=== PATIENT | female | born 1960 | race African-American/Black ===

== ENCOUNTER 2018-10-10 10:11 | Observation (INO) | payer BC ==
[2018-10-10] MEDS ORDERED: Meclizine HCl 25 MG TAB ONE (11:06)
--- NOTE | 2018-10-10 11:28 | CT ---
CT head noncontrast HISTORY: Dizziness. Altered mental status. COMPARISON: 07/30/2011. FINDINGS: There is no evidence of acute intracranial hemorrhage or infarct. The ventricles appear nor mal in size, shape and position. There is no mass effect or shift of midline structures. Visualized paranasal sinuses remain well aerated IMPRESSION: No acute intracranial abnormalities are demonstrated.
[2018-10-10] MEDS ORDERED: Guaifenesin DM 100-10/5 ML UDCUP PO PRN (11:54)
[2018-10-10] MEDS ORDERED: Dextrose 50% Abboject 50 ML SYRINGE SLOW IVP PRN (11:54)
[2018-10-10] MEDS ORDERED: Bisacodyl 10 MG SUPP PR PRN (11:54)
[2018-10-10] MEDS ORDERED: Dextrose 5% in Water 1,000 ML IV PRN (11:54)
[2018-10-10] MEDS ORDERED: Acetaminophen 325 MG TAB PO PRN (11:54)
[2018-10-10] MEDS ORDERED: HumaLOG 300 UNITS/3 ML VIAL SC PRN (11:54)
[2018-10-10] MEDS ORDERED: Senokot S 8.6-50 MG TAB PO PRN (11:54)
--- NOTE | 2018-10-10 12:28 | HP ---
REASON FOR ADMISSION: Near syncope, dizziness, possible TIA. HISTORY OF PRESENTING ILLNESS: The patient gives history of waking up around 5: 30 in the morning and did not feel good. She felt dizzy. Especially this was worse on standing up from lying down position. She vomited once and thought it might make her feel better, but this dizzy feeling continued. She was stumbling all over the house. She managed to go to work at [facility]. The patient still was feeling dizzy and got checked into [facility]. She was found to have had systolic blood pressures of 190. 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 No complaints of chest pain or palpitation. The patient says she worked in the yard yesterday and thinks that she might have hydrated well, but she is not so sure. No complaints of urinary frequency, urgency, fever, chest pain, palpitation, PND, or orthopnea. No complaints of cough or expectoration. PAST MEDICAL AND SURGICAL HISTORY: 1. History of hypertension. 2. Diabetes mellitus. 3. Noncompliant with medications or diet. 4. History of PE in 2007 and is on Coumadin for the same. 5. Mitral valve prolapse. 6. Bilateral rotator cuff repairs. 7. Cardiac cath done in 2008 at [facility] with no intervention per the patient. 8. Right ovarian cyst removed. 9. Right knee surgery, likely arthroscopic. 10. Tonsillectomy. 11. Hysterectomy. 12. Her last stress test was in 2016 here, which showed no evidence of reversible ischemia. CURRENT MEDICATIONS: 1. Lopressor 25 mg daily. 2. Coumadin 7.5 mg for 3 days and 5 mg on the rest of the 4 days. 3. Losartan with hydrochlorothiazide one tablet daily. ALLERGIES: ALLERGIC TO FLEXERIL; LISINOPRIL, WHICH CAUSES COUGH, BUT IS OKAY TAKING LOSARTAN; AND VICODIN. PERSONAL HISTORY: Does not abuse alcohol or drugs. No history of smoking. FAMILY HISTORY: Both parents are living. Mother is a survivor of breast cancer. Father has had history of stroke, hypertension, and dyslipidemia. CODE STATUS: Full. Power of deputy county attorney is her daughter, Ms. Jadon Cassidy. REVIEW OF SYSTEMS: CONSTITUTIONAL: Negative for weight loss or gain, ability to conduct usual activities. SKIN: Negative for rash, itching. EYES: Negative for double vision, pain. ENT/MOUTH: Negative for nose bleeding, neck stiffness, pain, tenderness. CARDIOVASCULAR: Negative for palpitations, dyspnea on exertion, orthopnea. RESPIRATORY: Negative for shortness of breath, wheezing, cough, hemoptysis, fever or night sweats. GASTROINTESTINAL: Negative for poor appetite, abdominal pain, heartburn, nausea , vomiting, constipation, or diarrhea. GENITOURINARY: Negative for urgency, frequency, dysuria, nocturia. MUSCULOSKELETAL: Negative for pain, swelling. NEUROLOGIC/PSYCHIATRIC: Negative for anxiety, depression. ALLERGY/IMMUNOLOGIC: Negative for skin rash, bleeding tendency. PHYSICAL EXAMINATION: GENERAL: The patient is a 57-year-old female, who is currently not in any acute distress. VITAL SIGNS: Blood pressure 190/90 at [facility], here it is 175/78; pulse 62 per minute; respiratory rate 20 per minute; temperature 98 degrees Fahrenheit; saturating 100% on room air. NECK: Supple. No elevated JVP. HEENT: Eyes; extraocular muscles intact. Pupils reacting to light. Oral cavity, mucous membranes are moist. No exudates or congestion. CARDIOVASCULAR SYSTEM: S1 and S2 heard. Regular rhythm. RESPIRATORY SYSTEM: Air entry 1+ bilateral. No rales or rhonchi. ABDOMEN: Soft. Bowel sounds heard. No tenderness, rigidity, or guarding. EXTREMITIES: No peripheral edema or calf tenderness. VASCULAR SYSTEM: Peripheral pulses 1+ bilateral. There is peripheral edema 1+ bilateral. No ischemic ulcerations or gangrene. CENTRAL NERVOUS SYSTEM: No gross focal deficits noted. The patient is alert, awake, and oriented well. PSYCHIATRIC SYSTEM: The patient's mood is euthymic. No hallucinations or delusions. LABORATORY DATA: White count of 4.6, H and H 12 and 43, platelet count is 255, MCV is 78 with 42% neutrophils, and 47% lymphocytes. PT/INR is 15 and 1.2 and PTT 29. BUN 16, creatinine 0.7, and serum glucose 137. Liver enzymes within normal limits. First set of cardiac enzymes are negative. CT brain done shows no acute intracranial abnormality. No hemorrhage or infarct seen. EKG done shows sinus bradycardia at 54 beats per minute, the signs of LVH seen, her corrected QT interval is 426 milliseconds. CLINICAL IMPRESSION AND PLAN: The patient will be under observation on stroke unit for dizziness likely orthostasis, uncontrolled hypertension, rule out TIA. We will follow TIA evidence based protocol. Her CT brain was negative. We will obtain MRI without contrast. Orthostatic blood pressures. Lipid profile in the morning. She will be on aspirin, home dose of Coumadin at 7.5 and 5 mg as before. We will also continue Lopressor 25 twice daily and losartan with hydrochlorothiazide at home dose once daily. We will obtain HbA1c and place her on a moderate sliding scale with Humalog for now. Lipitor 40 mg will be added. We will continue to closely monitor her on the stroke unit. She has had a recent stress test in 2015, which was normal. She has also had a cardiac cath done in 2008 at [facility], with no intervention, likely normal coronaries per the patient. Job ID: [id number] MTDD
[2018-10-10 12:30] LABS: Bilirubin Negative (Negative); Blood, Urine Negative (Negative); Clarity CLEAR (Clear); Glucose, Urine (Dipstick) Negative (Negative); Leukocyte Negative (Negative); Nitrite Negative (Negative); Protein, Urine (Dipstick) Negative (Neg-Trace); Specific Gravity, Urine 1.015 (1.002-1.036); Urobilinogen 0.2 mg/dL (0.2-1.0)
[2018-10-10 12:33] LABS: Pregnancy Test - Urine (BHCG) Negative (Negative); Pregu Control Background? CLEAR/WHITE (CLR/WHITE); Pregu Control Bar Appear? YES (CONTROL BAR); Specific Gravity 1.015 (1.002-1.036)
[2018-10-10] MEDS: Sodium Chloride 0.9% 1,000 ML IV SCH (14:13)
[2018-10-10 14:45] VITALS: BMI 35.5
--- NOTE | 2018-10-10 16:19 | MRI ---
MRI BRAIN NONCONTRAST: 10/10/18 HISTORY: 57-year-old female with nausea, vomiting, dizziness, and TIA. FINDINGS: The ventricles are normal in size and configuration. There is no major intraaxial signal abnormality , restricted diffusion, midline shift or any other mass effect, recent intraaxial hemorrhage, or extr aaxial fluid collection. IMPRESSION: Normal. jn[] POS: [facility]
[2018-10-10] MEDS: Metoprolol Tartrate 25 MG TAB PO SCH (20:32)
[2018-10-10] MEDS: Famotidine 20 MG TAB PO SCH (20:32)
[2018-10-10] MEDS ORDERED: Atorvastatin Calcium 40 MG TAB PO SCH (21:00)
[2018-10-11] MEDS: Sodium Chloride 0.9% 1,000 ML IV SCH (02:01)
[2018-10-11 06:24] LABS: Band 2 % (5-11); Eosinophils 3 % (0-10); Hemoglobin 11.7 g/dL (12.0-16.0); Lymphocytes 52 % (21-51); MDiff Complete? YES; Mean Corpuscular HGB CONC 31.5 g/dL (32.0-36.0); Mean Corpuscular Hemoglobin 24.7 pg (27.0-31.0); Mean Corpuscular Volume 78.5 fL (78.0-98.0); Mean Platelet Volume 8.9 fL (7.4-10.4); Monocytes 1 % (0-10); Neutrophil 37 % (42-75); Platelet Count 211 thou/uL (130-400); Platelet Morphology Comment Appears Adequate; RBC Morphology Normal; Reactive Lymphocytes 4 % (0-10); Red Blood Cell (RBC) Count 4.74 mill/uL (4.20-5.40); White Blood Cell (WBC) Count 5.1 thou/uL (4.8-10.8)
[2018-10-11 06:31] LABS: Anion Gap 11 mmol/L (10-20); BUN (Urea Nitrogen) 13 mg/dL (9.8-20.1); Calc. Creatinine Clearance 135 mL/min (70-130); Calcium 8.9 mg/dL (7.8-10.44); Carbon Dioxide 23 mmol/L (22-29); Cardiac Risk 5.6 (Less than 4.5); Chloride 110 mmol/L (98-107); Cholesterol 185 mg/dl (< 200 Desired); Estimated GFR-MDRD Greater than 90; Glucose 103 mg/dL (70-105); HDL Cholesterol 33 mg/dL (>60 Neg Risk); LDL Cholesterol, Calculated 133 mg/dL; Potassium 3.8 mmol/L (3.5-5.1); Sodium 140 mmol/L (136-145); Triglycerides 96 mg/dL (Less than 150)
[2018-10-11] MEDS ORDERED: Aspirin 81 mg Enteric Coated Tablet PO SCH (09:00)
[2018-10-11] MEDS ORDERED: NIFEdipine XL 30 MG TAB PO SCH (09:00)
[2018-10-11] MEDS: Famotidine 20 MG TAB PO SCH (09:03)
[2018-10-11] MEDS: Metoprolol Tartrate 25 MG TAB PO SCH (09:03)
[2018-10-11 12:24] VITALS: BP 180/77; TEMP 98.2
--- NOTE | 2018-10-12 11:15 | DIS ---
DATE OF ADMISSION: 10/10/2018 DATE OF DISCHARGE: 10/11/2018 DISCHARGE DISPOSITION: Home. PRIMARY DISCHARGE DIAGNOSIS: Near syncope, dizziness, and to rule out TIA. SECONDARY DISCHARGE DIAGNOSES: Hypertension, uncontrolled; diabetes mellitus, type 2 for diet control; history of pulmonary embolism, on Coumadin; mitral valve prolapse. PROCEDURES DONE DURING HOSPITALIZATION: The patient has had CT without contrast done, which showed no evidence of acute intracranial abnormality. MRI brain without contrast showed no acute infarct. H and H 11 and 37, platelet count 211, MCV 78. Total cholesterol 185, triglycerides 96, LDL 133, HDL 33. Urine test was negative. DISCHARGE MEDICATION: 1. Metoprolol 25 mg twice daily. 2. Procardia XL 30 mg daily. 3. Losartan with hydrochlorothiazide 50/12.5 mg daily. 4. Atorvastatin 40 mg p.o. at bedtime. 5. Coumadin 5 mg daily. 6. Protonix 40 mg daily. ALLERGIES: TO HYDROCODONE, LISINOPRIL, AND FLEXERIL. DISCHARGE PLAN: The patient to follow up with primary care physician in 1 week. BRIEF COURSE DURING HOSPITALIZATION: The patient initially was transferred from [facility] for complaints of dizziness and to rule out TIA. She also had uncontrolled hypertension on arrival. She was placed under observation on stroke unit. A complete stroke workup was done which was negative for any acute CVA. Medications were optimized for uncontrolled hypertension. The patient's diabetes is diet controlled. She has remained hemodynamically stable during her stay here. Her dizziness is completely resolved. She has been advised to check blood pressure and pulse twice daily and record for a period of 10 days to follow up with primary care physician. Please note, I have seen and examined the patient on the day of discharge. Her symptoms were likely due to uncontrolled hypertension and orthostasis. Job ID: [id number] [facility]
== END 2018-10-11 13:40 | disposition home or self-care (01) ==
LOC: ERS 10:11 → 2SE 13:50
PROVIDERS: ADMIT Internal Medicine; ATTEND Internal Medicine
DX: R42 Dizziness and giddiness (principal); R55 Syncope and collapse; I10 Essential (primary) hypertension; E11.9 Type 2 diabetes mellitus without complications; I34.1 Nonrheumatic mitral (valve) prolapse; Z86.711 Personal history of pulmonary embolism; Z91.11 Patient's noncompliance with dietary regimen; Z91.14 Patient's other noncompliance with medication regimen; Z79.01 Long term (current) use of anticoagulants; Z79.899 Other long term (current) drug therapy; Z88.5 Allergy status to narcotic agent; Z88.8 Allergy status to other drugs, medicaments and biological substances; Z98.890 Other specified postprocedural states
CPT/HCPCS: 36415; 36416; 70450; 70551; 80048; 80061; 81003; 81025; 85025; 96360; 96361; G0378; J8499

== ENCOUNTER 2019-10-05 23:09 | Inpatient (IN) | payer BC, OTHER ==
--- NOTE | 2019-10-06 00:06 | RAD ---
XR Chest 1 View Portable HISTORY: Shortness of breath COMPARISON: 08/07/2018 FINDINGS: The heart size is normal. The lungs are well expanded without focal areas of consolidation, pneumothorax or pleural effusions. IMPRESSION: No radiographic evidence of acute cardiopulmonary process.
[2019-10-06] MEDS ORDERED: Ibuprofen 200 MG TAB ONE (00:07)
[2019-10-06] MEDS ORDERED: Ondansetron PF 4 MG/2 ML Vial ONE (00:07)
[2019-10-06] MEDS ORDERED: Azithromycin 500 MG VIAL ONE (00:12)
[2019-10-06] MEDS ORDERED: cefTRIAXone\\ROCEPHIN 2 GM VIAL ONE (00:12)
[2019-10-06 00:50] LABS: Glucose 124 mg/dL (70-105)
[2019-10-06 00:59] LABS: ALT (SGPT) 18 U/L (8-55); AST (SGOT) 30 U/L (5-34); Albumin 3.6 g/dL (3.5-5.0); Alkaline Phosphatase 42 U/L (40-110); Anion Gap 15 mmol/L (10-20); BUN (Urea Nitrogen) 9 mg/dL (9.8-20.1); Bilirubin, Total 0.7 mg/dL (0.2-1.2); Calc. Creatinine Clearance 0 mL/min (70-130); Calcium 8.3 mg/dL (7.8-10.44); Carbon Dioxide 21 mmol/L (22-29); Chloride 106 mmol/L (98-107); Estimated GFR-MDRD Greater than 90; Globulin 3.9 g/dL (2.4-3.5); Potassium 4.4 mmol/L (3.5-5.1); Protein, Total 7.5 g/dL (6.0-8.3); Sodium 138 mmol/L (136-145)
[2019-10-06 01:08] LABS: INR-International Normal Ratio 2.7; PTT 57.3 sec (22.9-36.1); Prothrombin Time 28.1 sec (12.0-14.7)
[2019-10-06 01:19] LABS: #Basophils 0.1 thou/uL (0.0-0.2); #Lymphocytes 1.9 thou/uL (1.20-3.40); #Monocytes 0.3 thou/uL (0.11-0.59); #Neutrophils 4.1 thou/uL (1.40-6.50); %Eosinophils 0.3 % (0.0-10.0); %Lymphocytes 30.1 % (21.0-51.0); %Monocytes 4.8 % (0.0-10.0); %Neutrophils 63.8 % (42.0-75.0); Anisocytosis SLIGHT = 6-15 cells (100X) (0-5/hpf); Elliptocytes SLIGHT = 2-5 cells (100X) (0-1/hpf); Hemoglobin 11.3 g/dL (12.0-16.0); MDiff Complete? YES; Mean Corpuscular HGB CONC 32.9 g/dL (32.0-36.0); Mean Corpuscular Hemoglobin 23.8 pg (27.0-31.0); Mean Corpuscular Volume 72.6 fL (78.0-98.0); Mean Platelet Volume 12.1 fL (7.4-10.4); Platelet Count 154 thou/uL (130-400); RBC Distribution Width 14.6 % (11.5-14.5); Red Blood Cell (RBC) Count 4.72 mill/uL (4.20-5.40); White Blood Cell (WBC) Count 6.4 thou/uL (4.8-10.8)
[2019-10-06] MEDS ORDERED: Nitroglycerin 0.4 MG TAB (25 Tab Bottle) PO PRN (01:52)
[2019-10-06] MEDS ORDERED: Dextrose 5% in Water 1,000 ML IV PRN (01:58)
[2019-10-06] MEDS ORDERED: Dextrose 50% Abboject 50 ML SYRINGE SLOW IVP PRN (01:58)
[2019-10-06] MEDS ORDERED: HumaLOG 300 UNITS/3 ML VIAL SC PRN (01:58)
--- NOTE | 2019-10-06 02:08 | PDOC.EVN ---
Event Note - Event Note Event Note: [id number] HP dictated
[2019-10-06] MEDS ORDERED: Sodium Chloride 0.9% 1,000 ML IV SCH (02:15)
[2019-10-06 03:48] VITALS: BMI 32.5
--- NOTE | 2019-10-06 05:29 | HP ---
CHIEF COMPLAINT: Shortness of breath and chest pain. HISTORY OF PRESENT ILLNESS: Ms. Cassidy is a 58-year-old female with past medical history of hypertension; diabetes mellitus, type 2; pulmonary embolism, on Coumadin, presented to the emergency room with worsening shortness of breath since yesterday. Also she has been having chest tightness and chest pain. Chest pain is described in the center of the chest. The patient has been feeling sick for 1 week. She was tested positive for COVID. Workup in the emergency room, the patient was in respiratory distress. Febrile with a temperature of 103.2. Troponin is negative. Septic workup done in the ED. The patient was given IV antibiotics in the emergency room and albuterol inhaler. The patient is being admitted to hospital for further management. PAST MEDICAL HISTORY: 1. Pulmonary embolism. 2. Diabetes mellitus. 3. Hypertension. 4. Recently diagnosed with COVID. 5. Mitral valve prolapse. PAST SURGICAL HISTORY: 1. Left rotator cuff. 2. Right ovarian cyst. 3. Right knee. 4. Tonsillectomy. 5. Hysterectomy. 6. Right rotator cuff. 7. Knee surgery. SOCIAL HISTORY: No smoking history. Denies drug use. Drinks socially. FAMILY HISTORY: Reviewed and noncontributory. HOME MEDICATIONS: Please see home medication reconciliation form for updated medications. ALLERGIES: CYCLOBENZAPRINE, FLEXERIL, HYDROCODONE, BARBITURATES, LISINOPRIL, VICODIN. REVIEW OF SYSTEMS: Review of 14 systems negative except what is mentioned in the history of present illness. PHYSICAL EXAMINATION: GENERAL: The patient is awake, in moderate respiratory distress. VITAL SIGNS: Blood pressure 120/80, pulse is 86, respiratory rate is 22, temperature is 103.2, oxygen saturation 95% on room air. HEAD AND NECK: Normocephalic, atraumatic. NECK: Supple. No JVD. CHEST: Diffuse bilateral expiratory wheeze. HEART: S1, S2. Regular. ABDOMEN: Soft, nontender. Bowel sounds present. NEUROLOGIC: Awake, alert, moving extremities. PSYCHIATRIC: Unable to assess. EXTREMITIES: No clubbing or cyanosis. GENITOURINARY: No suprapubic tenderness. No flank tenderness. ASSESSMENT AND PLAN: 1. Acute dyspnea. 2. Chest pain. 3. COVID-2019 respiratory tract infection. 4. Hypertension. 5. Diabetes mellitus, type 2. 6. History of pulmonary embolism, on Coumadin. PLAN: 1. Admit. 2. Serial troponins. 3. Aspirin. 4. Empiric antibiotics. Cannot rule out superimposed bacterial infection. 5. Bronchodilators as needed. 6. Reconcile home medications. 7. DVT prophylaxis as appropriate. 8. Expected length of stay, 2 midnights or more. Job ID: [id number]
[2019-10-06 05:58] LABS: Troponin I 0.015 ng/mL (< 0.028)
[2019-10-06] MEDS: Aspirin 325 mg Enteric Coated Tablet PO SCH (08:35)
[2019-10-06] MEDS ORDERED: Enoxaparin Sodium 80 MG/0.8 ML SYRINGE SC SCH (09:00)
[2019-10-06 11:05] LABS: Troponin I Less than 0.010 ng/mL (< 0.028)
[2019-10-06] MEDS ORDERED: Albuterol Sulfate 2.5 mg/3 ml Neb NEB PRN (11:22)
[2019-10-06] MEDS: Acetaminophen 325 MG TAB PO PRN ×2 (12:12→19:56)
[2019-10-06] MEDS ORDERED: Albuterol 200 PUFF (6.7GM INHALER) INH PRN (13:00)
--- NOTE | 2019-10-06 15:56 | PDOC.HOSPP ---
- Subjective Encounter Date: 10/06/19 Encounter Time: 15:56 Subjective: Ms. Cassidy was seen today in follow-up of COVID infection. She notes some tightness in her chest. She also says she feels" bad " when the fever hits. - Objective Vital Signs & Weight: Vital Signs (12 hours) Temp Pulse Resp BP Pulse Ox 10/06/19 11:00 102.5 F H 94 18 146/70 H 97 10/06/19 08:37 98.4 F 72 16 132/70 97 Weight Admit Weight 195 lb 4.8 oz Weight 195 lb 4.8 oz Result Diagrams: 10/06/19 00:49 10/06/19 00:10 Additional Labs: Accuchecks 10/06/19 10/06/19 11:01 04:08 POC Glucose 111 H 125 H Hospitalist ROS - Medication Medications: Active Medications Generic Name Dose Route Start Last Admin Trade Name Freq PRN Reason Stop Dose Admin Acetaminophen 650 mg 10/06/19 11:21 10/06/19 12:12 Tylenol PO 650 mg Q4H PRN Administration Headache/Fever or Pain Aspirin 325 mg 10/06/19 09:00 10/06/19 08:35 Ecotrin PO 325 mg DAILY NEW Administration - Exam Eye: PERRL, anicteric sclera Heart: RRR, no murmur, no gallops, no rubs, normal peripheral pulses Respiratory: CTAB (with some coarse breath sounds bilaterally, no rhonchi or wheezing) Gastrointestinal: soft, non-tender, non-distended, normal bowel sounds, no palpable masses, no hepatomegaly Extremities: no cyanosis, no edema Hosp A/P (1) COVID-19 Code(s): U07.1 - COVID-19 Status: Acute (2) HTN (hypertension) Code(s): I10 - ESSENTIAL (PRIMARY) HYPERTENSION Status: Chronic Qualifiers: Hypertension type: essential hypertension Qualified Code(s): I10 - Essential (primary) hypertension (3) Hx pulmonary embolism Code(s): Z86.711 - PERSONAL HISTORY OF PULMONARY EMBOLISM Status: Chronic - Plan * COVID infection- continue symptomatic management * Will check inflammatory markers, and trend * PE- continue coumadin * DM- continue SSI * Optimize nutritional status
--- NOTE | 2019-10-06 16:54 | CON ---
DATE OF CONSULTATION: 10/06/2019 REASON FOR CONSULTATION: COVID-19 infection. HISTORY OF PRESENT ILLNESS: A 58-year-old who has a history of mitral valve prolapse, type 2 diabetes, hypertension, and prior pulmonary embolism, who was exposed to family members with COVID pneumonia in [place] and in [place] and developed symptoms about 9 days before and came to the hospital because she was feeling breathless and started having fever. She denies any headaches. No abdominal pain or diarrhea. No genitourinary symptoms. No joint symptoms. MEDICAL HISTORY: 1. Mitral valve prolapse. 2. Type 2 diabetes. 3. Hypertension. 4. Pulmonary embolism. SOCIAL HISTORY: Never smoker. No other drug use. FAMILY HISTORY: Both parents with COVID in [place]. ALLERGIES: CYCLOBENZAPRINE, FLEXERIL, HYDROCODONE, AND LISINOPRIL. CURRENT MEDICATIONS: 1. Aspirin. 2. Azithromycin. 3. Ceftriaxone. 4. Insulin. 5. Nifedipine. 6. Coumadin. PHYSICAL EXAMINATION: VITAL SIGNS: T-max 102.5, blood pressure 140/70, pulse 94, respirations 18, and O2 saturation 97 on room air. GENERAL: Does not appear in distress, oriented, speaks in full sentences. SKIN: Normal. There is no lymphadenopathy. HEENT: Ocular movements conjugate. Oral cavity normal. NECK: Supple. LUNGS: Symmetric with clear breath sounds. HEART: S1 and S2. Regular rate. No S3 or S4. ABDOMEN: Soft, not distended or tender. No ascites. No bladder distention. EXTREMITIES: Moves all extremities equally. LABORATORY DATA: White cell count 6.4, hemoglobin 11, platelets 154, and normal differential, lymphocytes are 1.9. INR 2.7. D-dimer 0.49. CRP 5.88. Ferritin 388. Creatinine 0.79. Chest x-ray with no infiltrates. ASSESSMENT: 1. Type 2 diabetes. 2. Hypertension. 3. COVID-19 pneumonia. We will discontinue azithromycin and Rocephin. Continue conservative management. She is at almost 10 days of illness and she is not requiring oxygen supplementation, so I do not think she would be a candidate for a remdesivir at this point in time. Job ID: [id number]
[2019-10-06] MEDS: Atorvastatin Calcium 40 MG TAB PO SCH (19:41)
[2019-10-06] MEDS ORDERED: cefTRIAXone\\ROCEPHIN 1 GM in Sodium Chloride 0.9% 100 ML IVPB SCH (21:00)
[2019-10-06] MEDS ORDERED: Azithromycin 500 MG in Sodium Chloride 0.9% 250 ML 250 ML IVPB SCH (22:00)
[2019-10-07] MEDS: Acetaminophen 325 MG TAB PO PRN ×2 (00:53→09:31)
[2019-10-07 05:51] LABS: INR-International Normal Ratio 2.7; Prothrombin Time 28.1 sec (12.0-14.7)
[2019-10-07 05:52] LABS: D-Dimer Test 0.62 *mcg/mL (0.27-0.43)
[2019-10-07] MEDS: NIFEdipine XL 30 MG TAB PO SCH (09:25)
[2019-10-07] MEDS: Aspirin 325 mg Enteric Coated Tablet PO SCH (09:25)
[2019-10-07] MEDS: Folic Acid/Vit B Comp W-C PO SCH (09:25)
[2019-10-07] MEDS: Ascorbic Acid 500 mg Chewable Tablet PO SCH (09:25)
--- NOTE | 2019-10-07 10:46 | ULT ---
Exam: Right upper extremity venous ultrasound with Doppler HISTORY: Right lower extremity swelling. COMPARISON: 06/23/2015 TECHNIQUE: Grayscale, color flow, Doppler imaging and spectral wave form analysis of the right upper extremity venous system FINDINGS: There is patency and flow in the internal jugular vein, subclavian vein. There is compressi bility and flow in the axillary vein, brachial vein, radial vein, ulnar vein, cephalic vein, basilic vein IMPRESSION: No evidence of thrombus in the right upper extremity venous system
[2019-10-07] MEDS ORDERED: Warfarin Sodium 5 MG TAB PO SCH (17:00)
--- NOTE | 2019-10-07 17:27 | PRG ---
DATE OF SERVICE: 10/07/2019 SUBJECTIVE: Coughing less, although still every movement, she does, particularly on deep breathing, she was started coughing. No abdominal pain or diarrhea. OBJECTIVE: VITAL SIGNS: T-max 100.5 earlier today, BP 116/58, pulse 79, O2 saturations ranging from 94% to 99% on room air. GENERAL: Still looks apprehensive. LUNGS: With few crackles here and there. HEART: S1 and S2. Regular rate. ABDOMEN: Soft. Not distended. LABORATORY DATA: White cell count 6.4 and has not been repeated. CRP 10.13. Ferritin 380. D-dimer 0.62, a little bit higher than before. She is on warfarin. ASSESSMENT AND DISCUSSION: Type 2 diabetes, hypertension, COVID pneumonia, on conservative management. This is the 11th day of illness. Keep monitoring inflammatory markers, D-dimer. Job ID: [id number] MTDD
--- NOTE | 2019-10-07 17:28 | PDOC.HOSPP ---
- Subjective Encounter Date: 10/07/19 Encounter Time: 17:22 Subjective: Ms. Cassidy was seen today in follow-up of COVID infection. She says she is breathing better. Her appetite is improving. she continued to have some diarrhea. - Objective Vital Signs & Weight: Vital Signs (12 hours) Pulse Pulse Ox 10/07/19 09:25 79 10/07/19 08:00 94 L Weight Admit Weight 195 lb 4.8 oz Weight 194 lb 9.6 oz I&O: 10/06/19 10/07/19 10/08/19 06:59 06:59 06:59 Intake Total 686 320 Output Total 900 Balance -214 320 Result Diagrams: 10/06/19 00:49 10/06/19 00:10 Additional Labs: Accuchecks 10/07/19 10/07/19 10/07/19 16:09 12:29 04:59 POC Glucose 138 H 115 H 139 H 10/06/19 19:50 POC Glucose 135 H Hospitalist ROS - Medication Medications: Active Medications Generic Name Dose Route Start Last Admin Trade Name Freq PRN Reason Stop Dose Admin Acetaminophen 650 mg 10/06/19 11:21 10/07/19 09:31 Tylenol PO 650 mg Q4H PRN Administration Headache/Fever or Pain Ascorbic Acid 1,000 mg 10/07/19 09:00 10/07/19 09:25 Vitamin C PO 1,000 mg DAILY NEW Administration Aspirin 325 mg 10/06/19 09:00 10/07/19 09:25 Ecotrin PO 325 mg DAILY NEW Administration Atorvastatin Calcium 40 mg 10/06/19 21:00 10/06/19 19:41 Lipitor PO 40 mg HS NEW Administration HCTZ/Losartan Potassium 1 tab 10/07/19 09:00 10/07/19 09:25 Hyzaar 50/12.5 PO 1 tab DAILY NEW Administration Nifedipine 30 mg 10/07/19 09:00 10/07/19 09:25 Procardia Xl PO 30 mg DAILY NEW Administration Pantoprazole Sodium 40 mg 10/07/19 09:00 10/07/19 09:25 Protonix PO 40 mg DAILY NEW Administration Vitamin B Complex/Vit C/Folic Acid 1 tab 10/07/19 09:00 10/07/19 09:25 Nephro-Milton Tablet PO 1 tab DAILY NEW Administration Warfarin Sodium 5 mg 10/07/19 17:00 06/10/20 17:00 Coumadin PO 5 mg 1700 NEW Administration - Exam Eye: PERRL Heart: RRR, no murmur, no gallops, no rubs, normal peripheral pulses Respiratory: CTAB (with basilar rales) Gastrointestinal: soft, non-tender, non-distended, normal bowel sounds, no palpable masses, no hepatomegaly Extremities: no cyanosis, no edema Hosp A/P (1) COVID-19 Code(s): U07.1 - COVID-19 Status: Acute (2) HTN (hypertension) Code(s): I10 - ESSENTIAL (PRIMARY) HYPERTENSION Status: Chronic Qualifiers: Hypertension type: essential hypertension Qualified Code(s): I10 - Essential (primary) hypertension (3) Hx pulmonary embolism Code(s): Z86.711 - PERSONAL HISTORY OF PULMONARY EMBOLISM Status: Chronic - Plan * COVID infection- continue symptomatic management * Continue to trend inflammatory markers * PE- continue coumadin- and INR today was 2.7 * DM- continue SSI * Hopefully home tomorrow if her markers show some decline
[2019-10-07] MEDS: Atorvastatin Calcium 40 MG TAB PO SCH (20:19)
[2019-10-08 05:56] LABS: INR-International Normal Ratio 2.7; Prothrombin Time 28.3 sec (12.0-14.7)
[2019-10-08 05:57] LABS: D-Dimer Test 0.39 *mcg/mL (0.27-0.43)
[2019-10-08] MEDS: Folic Acid/Vit B Comp W-C PO SCH (07:44)
[2019-10-08] MEDS: Aspirin 325 mg Enteric Coated Tablet PO SCH (07:44)
[2019-10-08] MEDS: Ascorbic Acid 500 mg Chewable Tablet PO SCH (07:44)
[2019-10-08] MEDS: NIFEdipine XL 30 MG TAB PO SCH (07:44)
[2019-10-08 11:55] VITALS: BP 118/57; TEMP 96.6
--- NOTE | 2019-10-08 13:25 | PDOC.HOSPP ---
- Subjective Encounter Date: 10/08/19 Encounter Time: 13:24 Subjective: Ms. Cassidy was seen today in follow-up of COVID pneumonia. She is clinically improved. She seems a bit anxious about going home. No new complaints, except for some diarrhea. She has been breathing comfortably without oxygen supplementation. - Objective Vital Signs & Weight: Vital Signs (12 hours) Temp Pulse Resp BP BP Pulse Ox 10/08/19 11:45 96.6 F L 96 20 118/57 L 96 10/08/19 07:55 98.2 F 87 20 131/67 95 10/08/19 05:20 99 F 79 22 H 120/63 95 Weight Admit Weight 195 lb 4.8 oz Weight 194 lb 9.6 oz I&O: 10/07/19 10/08/19 10/09/19 06:59 06:59 06:59 Intake Total 686 780 Output Total 900 Balance -214 780 Result Diagrams: 10/06/19 00:49 10/06/19 00:10 Additional Labs: Accuchecks 10/08/19 10/08/19 10/07/19 11:45 05:21 20:44 POC Glucose 114 H 107 121 H 10/07/19 16:09 POC Glucose 138 H Hospitalist ROS - Medication Medications: Active Medications Generic Name Dose Route Start Last Admin Trade Name Celeste PRN Reason Stop Dose Admin Acetaminophen 650 mg 10/06/19 11:21 10/07/19 09:31 Tylenol PO 650 mg Q4H PRN Administration Headache/Fever or Pain Ascorbic Acid 1,000 mg 10/07/19 09:00 10/08/19 07:44 Vitamin C PO 1,000 mg DAILY NEW Administration Aspirin 325 mg 10/06/19 09:00 10/08/19 07:44 Ecotrin PO 325 mg DAILY NEW Administration Atorvastatin Calcium 40 mg 10/06/19 21:00 10/07/19 20:19 Lipitor PO 40 mg HS NEW Administration HCTZ/Losartan Potassium 1 tab 10/07/19 09:00 10/08/19 07:44 Hyzaar 50/12.5 PO 1 tab DAILY NEW Administration Nifedipine 30 mg 10/07/19 09:00 10/08/19 07:44 Procardia Xl PO 30 mg DAILY NEW Administration Pantoprazole Sodium 40 mg 10/07/19 09:00 10/08/19 07:44 Protonix PO 40 mg DAILY NEW Administration Vitamin B Complex/Vit C/Folic Acid 1 tab 10/07/19 09:00 10/08/19 07:44 Nephro-Milton Tablet PO 1 tab DAILY NEW Administration Warfarin Sodium 5 mg 10/07/19 17:00 10/07/19 17:00 Coumadin PO 5 mg 1700 NEW Administration - Exam Eye: PERRL, anicteric sclera Heart: RRR, no murmur, no gallops, no rubs, normal peripheral pulses Respiratory: CTAB, no wheezes, no rales, no ronchi, normal chest expansion, no tachypnea Gastrointestinal: soft, non-tender, non-distended, normal bowel sounds, no palpable masses Extremities: no cyanosis, no edema Hosp A/P (1) COVID-19 Code(s): U07.1 - COVID-19 Status: Acute (2) HTN (hypertension) Code(s): I10 - ESSENTIAL (PRIMARY) HYPERTENSION Status: Chronic Qualifiers: Hypertension type: essential hypertension Qualified Code(s): I10 - Essential (primary) hypertension (3) Hx pulmonary embolism Code(s): Z86.711 - PERSONAL HISTORY OF PULMONARY EMBOLISM Status: Chronic - Plan * COVID infection- inflammatory markers are declining. She is stable off supplemental oxygen * Stable for discharge home today * PE- continue coumadin- and INR today was 2.7 * DM- continue SSI
--- NOTE | 2019-10-08 22:05 | DIS ---
DATE OF ADMISSION: 10/06/2019 DATE OF DISCHARGE: 10/08/2019 PRIMARY CARE PHYSICIAN: Dr. Surya Omer. DISCHARGE DISPOSITION: Home. DISCHARGE DIAGNOSES: 1. Acute respiratory failure secondary to COVID-19 infection. 2. COVID-19 infection. 3. Pulmonary embolism. 4. Diabetes mellitus, type 2. 5. Hypertension. 6. History of mitral valve prolapse. DISCHARGE MEDICATIONS: Include: 1. Protonix 40 mg daily. 2. Nifedipine extended release 30 mg p.o. daily. 3. Losartan hydrochlorothiazide 50/12.5, one tablet daily. 4. Coumadin 5 mg daily. 5. Lipitor 40 mg at bedtime. IMAGING DONE DURING THE HOSPITAL STAY: The patient had a vascular ultrasound showing no evidence of thrombus in the right upper extremity. ALLERGIES: CYCLOBENZAPRINE, HYDROCODONE, AND LISINOPRIL. HOSPITAL COURSE: Ms. Cassidy is a pleasant 58-year-old female, who presented to the hospital with high fever and complaints of shortness of breath, as well as chest pain and tightness. She has been feeling sick for about a week and tested positive for COVID. When she came to the ER, her temperature was 103.2. She was admitted and ID consult was obtained to see whether or not she would benefit from some of the experimental treatment such as remdesivir. It was felt that she was far enough along into her illness that she should be past the acute phase of the illness and should be more on and therefore, remdesivir was not given. We watched her another couple of days in the hospital and trended her inflammatory markers. The D-dimer was trending down, as well as the C-reactive protein. She was stable without any oxygen supplementation and for this reason, she is being discharged home. She is to self quarantine at home for another two weeks as recommended and these instructions were given to her. She is to follow up with her primary care physician in about 3 to 4 weeks. Job ID: [id number]
--- NOTE | 2019-10-11 21:44 | PQF ---
LORENA HORTONE DARINEL EVANS MD [id number] [id number] CLINICAL DOCUMENTATION CLARIFICATION FORM: POST DISCHARGE Addendum to original discharge summary date: ____ Late entry note date: __ DATE: 10/11/2019 ATTN: DARINEL EVANS MD Please exercise your independent, professional judgment in responding to the clarification form. Clinical indicators are provided on the bottom of this form for your review Please check appropriate box(s) to clarify if the following diagnosis has been ruled in or ruled out: Sepsis [ X] Ruled in diagnosis [X ] Continue to treat [ ] Resolved [ ] Ruled out diagnosis [ ] Cannot rule out diagnosis [ ] Other diagnosis [ ] Unable to determine For continuity of documentation, please document condition throughout progress notes and discharge summary. Thank You. CLINICAL INDICATORS - SIGNS / SYMPTOMS / LABS - Sepsis- ED record, 10/04, Zaria Sapp DO - Temp: 103.2F, RR:32, Pulse: 86-- ED record, 10/04, Zaria Sapp - Mild respiratory distress, Tachypneic-- ED record, 10/04, Zaria Sapp DO - WBC: 6.4-Laboratory report, 10/05 RISK FACTORS - Acute respiratory failure- DS, 10/07, DARINEL EVANS MD - COVID 19 infection- DS, 10/07, DARINEL EVANS MD TREATMENTS - Azithromycin.IV- MAR, 10/05 (This form is maintained as a part of the permanent medical record) 2014 [employer]. All Rights Reserved [facility]
== END 2019-10-08 15:10 | disposition home or self-care (01) | DRG 871 ==
LOC: ERS 23:09 → OBSVTOIN 10-06 01:55 → 2SW 10-06 01:55
PROVIDERS: ADMIT Internal Medicine; ATTEND Internal Medicine
PROC: 8E0ZXY6 Isolation (ICD-10-PCS; principal; 2019-10-06)
DX: A41.89 Other specified sepsis (principal); U07.1 COVID-19; J96.00 Acute respiratory failure, unspecified whether with hypoxia or hypercapnia; J12.89 Other viral pneumonia; E11.9 Type 2 diabetes mellitus without complications; I10 Essential (primary) hypertension; Z96.651 Presence of right artificial knee joint; Z90.710 Acquired absence of both cervix and uterus; Z88.1 Allergy status to other antibiotic agents; Z88.8 Allergy status to other drugs, medicaments and biological substances; Z86.711 Personal history of pulmonary embolism; Z79.01 Long term (current) use of anticoagulants
CPT/HCPCS: 36415; 36416; 71045; 80053; 82728; 83605; 84484; 85025; 85379; 85610; 85730; 86140; 87040; 93005; 94760; 96365; 96368; 96375; J0456; J0696; J1650; J2405; J3490; J7050